=== PATIENT | male | born 1965 | race Caucasian/White ===

== ENCOUNTER 2021-01-07 12:12 | Observation (INO) ==
[2021-01-07] MEDS ORDERED: ASPIRIN 325 MG TABLET PO STA (12:40)
[2021-01-07] MEDS ORDERED: NITROGLYCERIN SL 0.4 MG TABLET SL PRN (12:40)
[2021-01-07 12:55] LABS: Basophils % 0.3 % (0.0-0.8); Eosinophils # 0.1 10*3/uL (0.0-0.87); Hematocrit 40.5 VOL% (42.0-52.0); Hemoglobin 13.4 GM/DL (14.0-18.0); Immature Granulocytes % 0.5 %; Immature Granulocytes Absolute 0.03 #; Lymphocytes # 1.7 10*3/uL (1.4-4.0); Lymphocytes % 29.2 % (21.2-54.2); Mean Corpuscular HGB Conc 33.1 GM/DL (32-36); Mean Corpuscular Volume 89.2 FL (87-102); Mean Platelet Volume 10.8 FL (9.6-12.0); Monocytes % 5.5 % (1.7-12.7); Neutrophils % 62.5 % (38.7-73.9); Platelet Count 192 T/CUMM (130-400); Red Blood Count 4.54 MC/CUMM (3.8-5.5); Red Cell Distribution Width 12.7 % (9.3-17.3); White Blood Count 5.9 T/CUMM (4-12)
[2021-01-07 13:29] LABS: Calcium 9.1 MG/DL (8.5-10.1); Osmolality,Calculated 277.5 MOS/KG (273-304)
[2021-01-07] MEDS ORDERED: ACETAMINOPHEN 325 MG TABLET PO PRN (14:43)
[2021-01-07] MEDS ORDERED: hydrALAZINE 20 MG/1 ML VIAL IV PRN (14:43)
[2021-01-07] MEDS ORDERED: ONDANSETRON 4 MG/2 ML VIAL IV PRN (14:43)
[2021-01-07] MEDS ORDERED: DEXTROSE 50% 25 GM/50 ML VIAL IV PRN (14:43)
[2021-01-07] MEDS ORDERED: GLUCAGON 1 MG VIAL IM PRN (14:43)
[2021-01-07] MEDS ORDERED: DOCUSATE SODIUM 100 MG CAPSULE PO PRN (14:43)
[2021-01-07] MEDS ORDERED: metFORMIN 500 MG TABLET PO SCH (17:00)
[2021-01-07] MEDS: INSULIN LISPRO 100 UNIT/ML SUBCUT SCH ×2 (18:07→21:33)
[2021-01-07] MEDS ORDERED: ROSUVASTATIN 20 MG TABLET PO SCH (21:00)
[2021-01-07] MEDS ORDERED: ENOXAPARIN 40 MG/0.4 ML SYRINGE SUBCUT SCH (21:00)
[2021-01-07] MEDS ORDERED: allopurinoL 100 MG TABLET PO SCH (21:00)
[2021-01-08 05:41] LABS: Basophils % 0.5 % (0.0-0.8); Immature Granulocytes % 0.3 %; Immature Granulocytes Absolute 0.02 #; Mean Platelet Volume 11.1 FL (9.6-12.0); Platelet Count 184 T/CUMM (130-400); Red Cell Distribution Width 12.8 % (9.3-17.3)
[2021-01-08 05:48] LABS: Eosinophils # 0.2 10*3/uL (0.0-0.87); Eosinophils % 3.2 % (0.00-10.9); Hematocrit 41.4 VOL% (42.0-52.0); Lymphocytes % 33.6 % (21.2-54.2); Mean Corpuscular HGB Conc 31.4 GM/DL (32-36); Mean Corpuscular Volume 92.6 FL (87-102); Monocytes % 5.6 % (1.7-12.7); Neutrophils % 56.8 % (38.7-73.9); Red Blood Count 4.47 MC/CUMM (3.8-5.5); White Blood Count 5.9 T/CUMM (4-12)
[2021-01-08 05:50] LABS: PT Patient Result 10.7 SECS (10.5-12.0); Partial Thromboplastin Time 29.5 SECS (23.9-33.8)
[2021-01-08 06:25] LABS: Bilirubin,Total 0.7 MG/DL (0.20-1.00); Calcium 9.1 MG/DL (8.5-10.1); Osmolality,Calculated 276.7 MOS/KG (273-304); Potassium 4.3 MMOL/L (3.5-5.1); Risk Ratio 3.44; Thyroid Stimulating Hormone 2.92 uIU/ml (0.358-3.74); VLDL Cholesterol 36.6 MG/DL
[2021-01-08] MEDS ORDERED: lisinopriL 20 MG TABLET PO SCH (09:00)
[2021-01-08] MEDS ORDERED: ASPIRIN CHEW 81 MG TABLET PO SCH (09:00)
[2021-01-08] MEDS ORDERED: amLODIPine 5 MG TABLET PO SCH (09:00)
[2021-01-08] MEDS ORDERED: PANTOPRAZOLE 40 MG TABLET PO SCH (09:00)
[2021-01-08] MEDS: INSULIN LISPRO 100 UNIT/ML SUBCUT SCH ×2 (09:12→12:36)
[2021-01-08 11:49] VITALS: BP 113/68
== END 2021-01-08 12:05 | disposition home or self-care (01) ==
LOC: N.ED 12:12 → N.EDINP 12:12 → N.TELEN 15:57
PROVIDERS: ADMIT Internal Medicine; ATTEND Internal Medicine